=== PATIENT | male | born 1990 | race Caucasian/White ===

== ENCOUNTER 2024-02-20 16:12 | Emergency (ER) | payer BC, SELFPAY ==
--- NOTE | 2024-02-20 16:14 | ED_ITS ---
HPI - General Adult General Chief complaint: Unspecified Stated complaint: Hiccups Time Seen by Provider: 02/20/24 16:13 Source: patient Mode of arrival: ambulatory Limitations: no limitations History of Present Illness HPI narrative: Werner is a 33-year-old male patient presenting to the clinic today with complaints of intermittent hiccups. He reports he has had hiccups off and on since Tuesday. States hiccups been lasting approximately 1-2 hours and then will go away after completing some physical maneuvers. He reports the last bout of hiccups lasted almost 2 hours. Hiccups caused abdomen discomfort and he vomited his lunch. Reports some history of having acid reflux in the past. He is not treated for GERD. Denies any URI symptoms. Denies any fever, chills, weight loss, Related Data Home Medications Medication Instructions Recorded Confirmed trazodone 50 mg tablet 25 mg PO HS 02/20/24 02/20/24 Allergies Allergy/AdvReac Type Severity Reaction Status Date / Time No Known Allergies Allergy Verified 02/20/24 16:20 Review of Systems Review of Systems: Pertinent positives per HPI. Patient denies any fever, chills, rash, headache, visual changes, dizziness, cough, runny nose, sore throat, shortness of breath, chest pain, palpitations, nausea, vomiting, diarrhea, constipation, abdominal pain, or any urinary issues. [facility] Past Medical History Medical History (Updated 02/20/24 @ 16:27 by Miko Arteaga APRN) ADHD Insomnia Surgical History Surgical History History of shoulder surgery left 2016 Family History Family History Father Acute myocardial infarction 2 Diabetes mellitus Grandparent Lung cancer Other Bipolar 1 disorder Social History Social History Smoking status: Never smoker Alcohol intake: current Drinks per week: 5 Substance use type: does not use Do You Feel Safe in your Home?: Yes Lack of Transportation: No Lack of Food: Never True Current Housing: I Have Housing Concerned About Future Housing: No Difficulty Paying Gas/Electric Bills: No Difficulty Paying for Meds: No Currently Unemployed: No Education: Bachelor's Degree Difficulty w/ Childcare or Family Care: No Comments At the time of my signature, I reviewed and agree with the nursing past medical, surgical, social, and family history. There is no relevant family history pertinent to the patient complaint. Exam Narrative: General: Well-developed, well nourished, in no apparent distress Head: Normocephalic, atraumatic Eyes: Pupils equally round and reactive to light bilaterally, EOM intact, sclera and conjunctive clear, no discharge, lids normal Ears: TMs intact and clear, ear canals clear, no drainage, grossly hearing wandy l. Nose: Nares patent, no discharge, no inflammation, no sinus tenderness. Mouth: Oropharynx without lesions or masses, good dentition, MMM. Neck: Supple, trachea midline, no enlargement of anterior or posterior cervical nodes, no thyroid masses or goiter palpable. Cardio: Regular rate and rhythm, s1 and s2 normal, no murmur appreciated. Resp: Clear to auscultation bilaterally anteriorly and posteriorly, no rhonchi, rales, wheezing or rubs Course Course Emergency Course: Portions of this record may have been created with voice recognition software. Level of Care: Express Care Visit Vital Signs Vital signs: Vital Signs Temperature 36.4 C L 02/20/24 16:16 Pulse Rate 54 L 02/20/24 16:16 Respiratory Rate 16 02/20/24 16:16 Blood Pressure 134/74 02/20/24 16:16 Pulse Oximetry 100 02/20/24 16:16 Oxygen Delivery Room Air 02/20/24 16:16 Temperature 36.4 C L 02/20/24 16:21 Pulse Rate 54 L 02/20/24 16:21 Respiratory Rate 16 02/20/24 16:21 Blood Pressure 134/74 02/20/24 16:21 Pulse Oximetry 100 02/20/24 16:21 Oxygen Delivery Room Air 02/20/24 16:21 Vital signs reviewed Medical Decision Making MDM Narrative Medical decision making narrative: At the time of visit patient is resting comfortably on the exam table. Patient appears to be nontoxic. Plan: I suspect patient has intermittent hiccups. Will send in prescription for omeprazole at the patient has been experiencing some GERD like symptoms. Will also send in Reglan for nausea and vomiting. Supportive measures were discussed with the patient and they voiced understanding discharge instructions and agrees to treatment plan. Return precautions reviewed Differential Diagnosis Differential Diagnosis: Persistent Hiccups, intractable hiccups, intermittent hiccups, GERD, malignancy Vital Signs Vital Signs: Vital Signs Temperature 36.4 C L 02/20/24 16:16 Pulse Rate 54 L 02/20/24 16:16 Respiratory Rate 16 02/20/24 16:16 Blood Pressure 134/74 02/20/24 16:16 Pulse Oximetry 100 02/20/24 16:16 Oxygen Delivery Room Air 02/20/24 16:16 Temperature 36.4 C L 02/20/24 16:21 Pulse Rate 54 L 02/20/24 16:21 Respiratory Rate 16 02/20/24 16:21 Blood Pressure 134/74 02/20/24 16:21 Pulse Oximetry 100 02/20/24 16:21 Oxygen Delivery Room Air 02/20/24 16:21 Discharge Plan Discharge Clinical Impression: Hiccups Patient Disposition: Home, Self-Care Condition: Stable Instructions: Antibiotic Form, Hiccups (ED) Additional Instructions: Hiccups discharge instructions: Take omeprazole and Reglan as prescribed Increase fluids and stay well hydrated May try the following physical maneuvers to discontinue hiccups: Breath holding for 5 to 10 seconds (or as tolerated). Performing Valsalva maneuver, holding for five seconds. Sipping on or gargling with very cold water. Biting into a lemon. Pulling on the tongue. Swallowing a teaspoon of dry sugar. Pressing gently but firmly on the eyeballs. While sitting, pulling the knees up to the chest (or leaning forward to compress the chest); hold the position for 30 seconds to one minute if possible. Drinking water through a rigid tube with a valve that requires significant suction effort. If symptoms are persistent for over 48 hours may need further evaluation/medications. GERD discharge instructions: Increase fluids and stay well hydrated Avoid eating spicy or fatty foods, chocolate, or drinking caffeine. Avoid foods that cause you to feel bloated. Stop smoking Lose weight/exercise Stay upright for at least 30 minutes after eating. May use tums for immediate relief Take medications only as prescribed. Follow up with your PCP in 3-5 days if symptoms persist. Prescriptions: New omeprazole 40 mg capsule,delayed release(DR/EC) 40 mg PO DAILY 30 Days Qty: 30 0RF metoclopramide HCl 10 mg tablet 10 mg PO Q6H PRN (Reason: nausea and vomiting) 3 Days Qty: 12 0RF No Action trazodone 50 mg tablet 25 mg PO HS Follow-up/Referrals: Kristina Powers, D[facility] BOSS [Primary Care Provider] - Time of Disposition: 16:33 Quality NIHSS Nursing Documentation ED NIHSS nursing documentation: reviewed/agree
[2024-02-20 16:16] VITALS: BP 134/74; PULSE 54; RESP 16; TEMP 36.4; O2SAT 100
[2024-02-20 16:21] VITALS: BP 134/74; PULSE 54; RESP 16; TEMP 36.4; O2SAT 100
== END 2024-02-20 16:37 | disposition home or self-care (01) ==
PROVIDERS: Emergency Provider Nurse Practitioner Family; PCP Nurse Practitioner
DX: R06.6 Hiccough (principal)
CPT/HCPCS: 99213; G0463